=== PATIENT | male | born 1970 | race Caucasian/White ===

== ENCOUNTER 2020-04-22 13:13 | Outpatient (REF) | payer OTHER, SELFPAY ==
[2020-04-25 07:54] LABS: Patient Race White; SARS-CoV-2 RNA Undetected (Undetected); SARS-CoV-2 Specimen Source Nasopharynx
== END 2020-04-22 13:33 ==
LOC: NCHCN 13:13
PROVIDERS: Visit Provider Family Medicine
DX: Z20.828 Contact with and (suspected) exposure to other viral communicable diseases (principal)
CPT/HCPCS: U0003

== ENCOUNTER 2020-10-08 20:58 | Outpatient (REF) | payer OTHER, SELFPAY ==
[2020-10-08 21:04] LABS: Calculated LDL 107 mg/dL (<100); Cholesterol 199 mg/dL (<200); HDL Cholesterol 85 mg/dL (40-60); Triglyceride 35 mg/dL (<150)
== END 2020-10-08 20:59 | disposition home or self-care (01) ==
LOC: NCHCN 20:58
PROVIDERS: Visit Provider Family Medicine
DX: I10 Essential (primary) hypertension (principal); E66.9 Obesity, unspecified
CPT/HCPCS: 80061

== ENCOUNTER 2020-11-16 16:14 | Outpatient (REF) | payer SELFPAY ==
[2020-11-16 21:38] LABS: Anion Gap 5.8 mmol/L (3-11); BUN 12 mg/dL (7-18); CO2 33.2 mmol/L (21.0-32.0); CREATININE 1.1 mg/dL (0.70-1.30); Calcium 9.7 mg/dL (8.5-10.1); Chloride 101 mmol/L (98-107); Glucose 101 mg/dL (74-106); Potassium 3.8 mmol/L (3.5-5.1); Sodium 140 mmol/L (136-145)
== END 2020-11-16 16:15 | disposition home or self-care (01) ==
LOC: NCHCN 16:14
PROVIDERS: Visit Provider Family Medicine
DX: I10 Essential (primary) hypertension (principal)
CPT/HCPCS: 80048